=== PATIENT | male | born 1975 | race Two or more races ===

== ENCOUNTER 2017-01-26 15:26 | Emergency (ER) ==
[2017-01-26 15:31] VITALS: BP 125/85; TEMP 98.8; BMI 32.8
--- NOTE | 2017-01-26 16:17 | ED.PDOC ---
General ED Provider: Dr. CHIP DAI Chief Complaint: Seizure Stated Complaint: FEELS LIKE HAVING A SEIZURE Time Seen by Physician: 16:00 (HAD NO SEIZURES OFF ALL MEDS PER PT ) Mode of Arrival: Walk-In Information Source: Patient Exam Limitations: No limitations Nursing and Triage Documentation Reviewed and Agree: Yes (STATED HIS MD D/C ALL MEDS ) Neurological Complaint Exam - Seizure Complaint/Exam Onset/Duration: N/A HAD NO SEIZURE BUT FELT LIKE HAVING 1 TODAY THIS AM Symptoms Are: Resolved Failed to Regain Consciousness: No (N/A) Review of Systems - Review Of Systems Constitutional: Reports: No symptoms Eyes: Reports: No symptoms Ears, Nose, Mouth, Throat: Reports: No symptoms Respiratory: Reports: No symptoms Cardiac: Reports: No symptoms GI: Reports: No symptoms : Reports: No symptoms Musculoskeletal: Reports: No symptoms Skin: Reports: No symptoms Neurological: Reports: No symptoms Endocrine: Reports: No symptoms Hematologic/Lymphatic: Reports: No symptoms All Other Systems: Reviewed and Negative Past Medical History - Past Medical History Previously Healthy: No Endocrine: Reports: None Cardiovascular: Reports: None Respiratory: Reports: None Hematological: Reports: None Gastrointestinal: Reports: None Genitourinary: Reports: None Neuro/Psych: Reports: None, Seizure Musculoskeletal: Reports: None Cancer: Reports: None - Surgical History General Surgical History: Reports: None - Family History Family History: Reports: None - Social History Smoking Status: Current every day smoker, Heavy tobacco smoker Hx Substance Use: No Alcohol Screening: None Physical Exam - Physical Exam Appearance: Well-appearing, No pain distress, Well-nourished Eyes: CHAI, EOMI, Conjunctiva clear ENT: Ears normal, Nose normal, Oropharynx normal Respiratory: Airway patent, Breath sounds clear, Breath sounds equal, Respirations nonlabored Cardiovascular: RRR, Pulses normal, No rub, No murmur GI/: Soft, Nontender, No masses, Bowel sounds normal, No Organomegaly Musculoskeletal: Normal strength, ROM intact, No edema, No calf tenderness Skin: Warm, Dry, Normal color Neurological: Sensation intact, Motor intact, Reflexes intact, Cranial nerves intact, Alert, Oriented Psychiatric: Affect appropriate, Mood appropriate Critical Care Note - Critical Care Note Total Time (mins): 0 (MD REFUSED PAIN MEDS , BEFORE WORK UP PT UPSET LEFT AMA ) Course - Course Vital Signs: Temp Pulse Resp BP Pulse Ox 01/26/17 15:26 98.8 F 98 H 18 125/85 98 Departure - Departure Time of Disposition: 16:18 (LEFT AMA AFTER PAIN MEDS WERE DECLINED ) Disposition: AMA Discharge Problem: Normal exam Instructions: Normal Exam (ED) Condition: Good Pt referred to PMD for follow-up: No Additional Instructions: Please call your Family Physician as soon as possible to schedule a follow-up appointment. Allergies/Adverse Reactions: Allergies ciprofloxacin [From Cipro] Adverse Reaction (Verified 12/12/13 08:36) ciprofloxacin HCl [From Cipro] Adverse Reaction (Verified 12/12/13 08:36) codeine Adverse Reaction (Verified 12/12/13 08:36) haloperidol [From Haldol] Adverse Reaction (Verified 01/26/17 15:34) levofloxacin [From Levaquin] Adverse Reaction (Verified 12/12/13 08:36) Home Medications: Ambulatory Orders Clonidine HCl 0.1 mg PO PRN PRN 12/12/13 Gabapentin [Neurontin] 800 mg PO TID 12/12/13 Hydrocodone/Ibuprofen [Vicoprofen 200-7.5 mg Tab] 1 tab PO Q4-6H PRN 12/12/13 Dextroamphetamine/Amphetamine [Adderall 20 mg Tablet] 20 mg PO BID 01/26/17 Escitalopram Oxalate [Lexapro] 20 mg PO DAILY 01/26/17 Levetiracetam [Keppra] 500 mg PO TID 01/26/17
== END 2017-01-26 16:20 | disposition left against medical advice (07) ==
LOC: ED 15:26
DX: Z00.00 Encounter for general adult medical examination without abnormal findings (principal); F17.210 Nicotine dependence, cigarettes, uncomplicated
CPT/HCPCS: 99284

== ENCOUNTER 2017-01-26 16:30 | Outpatient (CLI) ==
[2017-01-26 15:31] VITALS: BMI 32.8
== END 2017-01-26 16:31 | disposition home or self-care (01) ==
LOC: AMBL 16:30
PROVIDERS: ATTEND Internal Medicine
DX: R56.9 Unspecified convulsions (principal); R52 Pain, unspecified